=== PATIENT | male | born 1970 | race Caucasian/White ===

== ENCOUNTER 2016-08-17 | Emergency (ER) | payer BC | END 2016-08-17 03:39 | disposition home or self-care (01) | LOC: ER | DX: H53.132 Sudden visual loss, left eye (principal); E11.9 Type 2 diabetes mellitus without complications; Z79.4 Long term (current) use of insulin; I10 Essential (primary) hypertension; E03.9 Hypothyroidism, unspecified; Z79.82 Long term (current) use of aspirin; Z95.1 Presence of aortocoronary bypass graft | CPT/HCPCS: 36415; 70450; 80053; 85025; 85610; 85730; 93005 ==